=== PATIENT | male | born 1980 | race Asian ===

== ENCOUNTER 2017-04-14 00:08 | Emergency (ER) | payer OTHER ==
[~2017-04-14] VITALS: Ht 170.2 cm; Wt 77.0 kg
[2017-04-14 00:13] VITALS: BP 138/92
== END 2017-04-14 03:30 | disposition left against medical advice (07) ==
LOC: EMS 00:09
DX: M79.645 Pain in left finger(s) (principal); M79.89 Other specified soft tissue disorders; Z53.21 Procedure and treatment not carried out due to patient leaving prior to being seen by health care provider